=== PATIENT | male | born 1975 | race Caucasian/White ===

== ENCOUNTER 2021-02-02 15:40 | Emergency (ER) | payer OTHER ==
[~2021-02-02] VITALS: Ht 157.5 cm; Wt 86.3 kg
[2021-02-02] MEDS ORDERED: LISINOPRIL 10 MG TABLET PO ONE (16:00)
[2021-02-02] MEDS ORDERED: hydrOXYzine 25 MG TABLET PO PRN (16:00)
--- NOTE | 2021-02-02 16:29 | RAD ---
EXAM: Chest, single view. HISTORY: Hypertension. COMPARISON: None. FINDINGS: A frontal view of the chest is obtained. There is no infiltrate, pleural effusion or pneumo thorax. There is a prominent cardiac silhouette. IMPRESSION: No acute pulmonary finding. Electronically signed by: Daniela Quinones MD (02/02/2021 4:26 PM) [id number]
[2021-02-02 16:33] LABS: BASO # 0.1 x10^3/uL (0.0-0.2); BASO % 1 % (0-3); EOS # 1.3 x10^3/uL (0.0-0.7); EOS % 12 % (0-3); HEMATOCRIT 43.9 % (39.0-53.0); HEMOGLOBIN 14.8 g/dL (13.0-17.5); LYMPH # 2.5 x10^3/uL (1.0-4.8); LYMPH % 22 % (24-48); MEAN CORPUSCULAR HEMOGLOBIN 29 pg (25-35); MEAN CORPUSCULAR HGB CONC 34 g/dL (31-37); MEAN CORPUSCULAR VOLUME 87 fL (79-100); MONO # 0.7 x10^3/uL (0.0-1.1); MONO % 6 % (0-9); NEUT # 6.7 x10^3/uL (1.8-7.7); NEUT % 59 % (31-73); PLATELET COUNT 333 x10^3/uL (140-400); RED BLOOD COUNT 5.05 x10^6/uL (4.30-5.70); RED CELL DISTRIBUTION WIDTH 16.3 % (11.5-14.5); WHITE BLOOD COUNT 11.5 x10^3/uL (4.0-11.0)
--- NOTE | 2021-02-02 16:47 | EKG ---
[facility] [address] [place] [address] Test Date: 2021-02-02 Test Time: 16:42:54 Pat Name: KEM NGUYEN Department: Room: Gender: M Straw Hat Presser: : 1975 Requested By: ANGELICA CURRAN Order Number: [id number] Reading MD: Measurements Intervals [place] Rate: 92 P: 45 OK: 132 QRS: -34 QRSD: 94 T: 19 QT: 354 QTc: 443 Interpretive Statements SINUS RHYTHM ABNORMAL LEFT AXIS DEVIATION R-S TRANSITION ZONE IN V LEADS DISPLACED TO THE LEFT S1,S2,S3 PATTERN LEFT ANTERIOR FASCICULAR BLOCK INCOMPLETE RIGHT BUNDLE BRANCH BLOCK ABNORMAL ECG RI6.02 No previous ECG available for comparison
[2021-02-02 16:53] LABS: % BASOS 2 % (0-3); % EOS 13 % (0-5); % LYMPHS 19 % (24-48); % MONOS 4 % (0-10); % SEGS 62 % (35-66); PLT ESTIMATE ADEQUATE (ADEQUATE)
[2021-02-02 16:55] LABS: POLYCHROMASIA SLIGHT
[2021-02-02 17:18] LABS: CALCIUM 8.8 mg/dL (8.5-10.1); CREATININE 1.1 mg/dL (0.7-1.3); GFR 73.1; POTASSIUM 3.7 mmol/L (3.5-5.1)
[2021-02-02] MEDS ORDERED: LISI10TA16 PO (18:32)
[2021-02-02] MEDS ORDERED: HYDR25TA PO (18:32)
--- NOTE | 2021-02-02 18:32 | PHYS DOC ---
Past Medical History Additional Past Medical Histor: NON-HODKINS LYMPHOMA (ANGELICA CURRAN APRN) Past Surgical History: Other Additional Past Surgical Histo: LYMPHECTOMY (ANGELICA CURRAN APRN) Smoking Status: Never Smoker Alcohol Use: None (ANGELICA CURRAN APRN) General Adult EDM: Chief Complaint: SKIN PROBLEM HPI: HPI: Patient is a 45 year old male presents the emergency department complaining of itching all over. Patient states he would like to have a refill of his hydroxyzine prescription for itching and his lisinopril prescription for hyp ertension. Patient reports that he has a history of lymphoma, has broken out in hives that have not gone gone away in over a year. Patient reports he sees dermatology at the [facility] who told him his hives are related to his lymphoma diagnosis. Patient denies any changes in his hives other than he has ongoing itching and is ran out of his hydroxyzine for itching. Patient denies any chest pains, chest palpitations, shortness of breath, recent fever or chills. Patient states that his skin does itch. Patient denies any other physical complaints or physical concerns. Patient reports he has had the Covid 19 vaccination series, completed in October 2020, sumi panda. (ANGELICA CURRAN APRN) Review of Systems: Review of Systems: 14 body systems of review of systems have been reviewed. See HPI for pertinent positives and negative responses, otherwise all other systems are negative, nonpertinent or noncontributory. Constitutional: Negative except as outlined in HPI above. Skin: Negative except as outlined in HPI above. Eyes: Negative except as outlined in HPI above. HENT: Negative except as outlined in HPI above. Respiratory: Negative except as outlined in HPI above. Cardiovascular: Negative except as outlined in HPI above. GI: Negative except as outlined in HPI above. : Negative except as outlined in HPI above. Musculoskeletal: Negative except as outlined in HPI above. Integument: Negative except as outlined in HPI above. Neurologic: Negative except as outlined in HPI above. Endocrine: Negative except as outlined in HPI above. Lymphatic: Negative except as outlined in HPI above. Psychiatric: Negative except as outlined in HPI above. (ANGELICA CURRAN APRN) Heart Score: C/O Chest Pain: No Risk Factors: Risk Factors: DM, Current or recent (<one month) smoker, HTN, HLP, family history of CAD, obesity. Risk Scores: Score 0 - 3: 2.5% MACE over next 6 weeks - Discharge Home Score 4 - 6: 20.3% MACE over next 6 weeks - Admit for Clinical Observation Score 7 - 10: 72.7% MACE over next 6 weeks - Early Invasive Strategies (ANGELICA CURRAN APRN) Current Medications: Current Medications Medications (Trade) Dose Ordered Sig/Blank Start Time Stop Time Status Last Admin Dose Admin Hydroxyzine HCl (Atarax) 25 mg PRN Q6HRS PRN 02/02/21 16:00 02/02/21 16:09 25 MG Lisinopril (Prinivil) 10 mg 1X ONCE 02/02/21 16:00 02/02/21 16:01 DC 02/02/21 16:10 10 MG (ANGELICA CURRAN APRN) Allergies: Allergies: Allergies Coded Allergies Type Severity Reaction Last Updated Verified No Known Drug Allergies 02/02/21 No (ANGELICA CURRAN APRN) Physical Exam: PE: Constitutional: Well developed, well nourished, no acute distress, non-toxic appearance. 45-year-old male in no apparent distress. HENT: Normocephalic, atraumatic. Patient speaking in normal voice tones, no drooling, no trismus. No lymphadenopathy of the head and neck appreciated. Eyes: Conjunctiva normal, no discharge. Neck: Normal range of motion, no stridor. Cardiovascular: No cyanosis appreciated, distal cap refill less than 2 seconds. Lungs & Thorax: Patient is in no respiratory distress, no audible adventitious lung sounds appreciated. Lung sounds clear to auscultate all lung rock. Abdomen: Nontender, no abnormalities noted. Skin: Warm, dry, no erythema, no rash. Patient has marked global purpuric raised rash from scalp to feet. Skin is intact. Back: No tenderness, no deformities. Extremities: No tenderness, no cyanosis, no clubbing, ROM intact, no edema. Neurologic: Alert and oriented X 3, normal motor function, normal sensory function, no focal deficits noted. Psychologic: Affect normal, judgement normal, mood normal. (ANGELICA CURRAN APRN) Current Patient Data: Labs: Laboratory Tests Test 02/02/21 16:22 02/02/21 16:58 White Blood Count 11.5 x10^3/uL (4.0-11.0) H Red Blood Count 5.05 x10^6/uL (4.30-5.70) Hemoglobin 14.8 g/dL (13.0-17.5) Hematocrit 43.9 % (39.0-53.0) Mean Corpuscular Volume 87 fL (79-100) Mean Corpuscular Hemoglobin 29 pg (25-35) Mean Corpuscular Hemoglobin Concent 34 g/dL (31-37) Red Cell Distribution Width 16.3 % (11.5-14.5) H Platelet Count 333 x10^3/uL (140-400) Neutrophils (%) (Auto) 59 % (31-73) Lymphocytes (%) (Auto) 22 % (24-48) L Monocytes (%) (Auto) 6 % (0-9) Eosinophils (%) (Auto) 12 % (0-3) H Basophils (%) (Auto) 1 % (0-3) Neutrophils # (Auto) 6.7 x10^3/uL (1.8-7.7) Lymphocytes # (Auto) 2.5 x10^3/uL (1.0-4.8) Monocytes # (Auto) 0.7 x10^3/uL (0.0-1.1) Eosinophils # (Auto) 1.3 x10^3/uL (0.0-0.7) H Basophils # (Auto) 0.1 x10^3/uL (0.0-0.2) Segmented Neutrophils % 62 % (35-66) Lymphocytes % 19 % (24-48) L Monocytes % 4 % (0-10) Eosinophils % 13 % (0-5) H Basophils % 2 % (0-3) Platelet Estimate Adequate (ADEQUATE) Polychromasia Slight Sodium Level 140 mmol/L (136-145) Potassium Level 3.7 mmol/L (3.5-5.1) Chloride Level 104 mmol/L (98-107) Carbon Dioxide Level 30 mmol/L (21-32) Anion Gap 6 (6-14) Blood Urea Nitrogen 13 mg/dL (8-26) Creatinine 1.1 mg/dL (0.7-1.3) Estimated GFR (Cockcroft-Gault) 73.1 Glucose Level 133 mg/dL (70-99) H Calcium Level 8.8 mg/dL (8.5-10.1) Troponin I Quantitative < 0.017 ng/mL (0.000-0.055) Laboratory Tests 02/02/21 16:22 Laboratory Tests 02/02/21 16:58 Vital Signs: Vital Signs Date Time Temp Pulse Resp B/P (MAP) Pulse Ox O2 Delivery O2 Flow Rate FiO2 02/02/21 17:00 91 244/115 (158) 99 02/02/21 15:51 98.2 20 98.2 (ANGELICA CURRAN APRN) EKG: EKG: EKG performed at 1642 by ED nursing staff shows a normal sinus rhythm with a left axis deviation, no other ectopy appreciated, heart rate 92 bpm, MO interval 0.132, QT 0.443, no acute STEMI, no ACS, no acute ischemia appreciated, EKG interpreted by ED attending physician Dr. Briones. (ANGELICA CURRAN APRN) Radiology/Procedures: Radiology/Procedures: PATIENT: SHERRILL HECTOROUNT: [id number] : 1975 LOCATION: ER AGE: 45 SEX: M EXAM STATUS: REG ER ORD. PHYSICIAN: ANGELICA CURRAN APRN REASON: high blood pressure PROCEDURE: CHEST AP ONLY EXAM: Chest, single view. HISTORY: Hypertension. COMPARISON: None. FINDINGS: A frontal view of the chest is obtained. There is no infiltrate, pleural effusion or pneumothorax. There is a prominent cardiac silhouette. IMPRESSION: No acute pulmonary finding. Electronically signed by: Daniela Doshi MD (02/02/2021 4:26 PM) [id number] DICTATED and SIGNED BY: DANIELA DOSHI MD DATE: 02/02/21 [id number] (ANGELICA CURRAN APRN) Course & Med Decision Making: Course & Med Decision Making Pertinent Labs and Imaging studies reviewed. (See chart for details) 45-year-old male, vital signs reviewed, presents to the emergency department for prescription refill of hydroxyzine and lisinopril. Patient's physical presentation and examination unremarkable for acute illness. Patient does have a global purpuric rash which she describes as normal over the past year related to his lymphoma and cancer treatment for lymphoma. Patient's blood pressure elevated at 248/123 during physical examination, patient has no physical symptoms of elevated blood pressure, related to patient's history of lymphoma will rule out endorgan damage, give patient's 10 mg lisinopril dose in the ED today along with hydroxyzine for itching dose suspected elevated blood pressure related to patient's pruritic urticaria. Patient is EKG unremarkable, chest x-ray unremarkable, labs did not reveal any endorgan damage, upon reevaluation of the patient, patient's blood pressure down to 158/100. Discussed with patient need to keep follow-up appointment with physicians at , continue to take blood pressure medications as directed, follow-up with dermatology for ongoing treatment of skin condition. Discussed with the patient all findings and diagnostic testing as well as the need to follow-up with their primary care provider for further evaluation and treatment or return to the ED if any new or worsening symptoms. Strict return precautions were also discussed at length, the patient voiced understanding and agreement with the discharge planning. The patient was nontoxic in appearance, in no apparent distress, and hemodynamically stable at the time of disposition. (ANGELICA CURRAN APRN) Course & Med Decision Making I have participated in the care of this patient and I have reviewed and examined the patient and agree with all pertinent clinical information above including history, exam, and recommendations. Patient with chronic appearing keloid-like purpuric rash which she states has been present for 1 year and unchanged. He has does have a history of lymphoma, untreated hypertension, denies illicit drug use, admits that he is not great about taking his medications. Does not have his medications at home. He was given treatment with lisinopril in the emergency department which lowered his blood pressure as above. Further antihypertensives were withheld. Patient was asymptomatic during his entire ED course it did not show any evidence for endorgan damage. He was urged to come back to the emergency department if he suffers any symptoms such as chest pain, shortness of breath, for this night as he cannot manage at home. He was given his blood pressure medicine for home. vitals after treatment as below. Lamar Briones, DO Vital Signs Date Time Temp Pulse Resp B/P (MAP) Pulse Ox O2 Delivery O2 Flow Rate FiO2 02/02/21 18:44 97 186/95 (125) 98 02/02/21 17:00 91 244/115 (158) 99 02/02/21 16:10 98 246/129 (168) 99 02/02/21 16:10 93 246/129 02/02/21 15:51 98.2 96 20 223/115 96 98.2 (LAMAR BRIONES DO) [place] Disclaimer: Dragon Disclaimer: This electronic medical record was generated, in whole or in part, using a voice recognition dictation system. (ANGELICA CURRAN APRN) Departure Departure Impression: Primary Impression: Skin rash Additional Impressions: Medication refill Poorly-controlled hypertension Disposition: HOME / SELF CARE / HOMELESS Condition: GOOD Referrals: NO PCP (PCP) Additional Instructions: You are seen today in the emergency department for a medication refill for your skin rash itching, and medication refill for your high blood pressure. Your blood pressure was markedly high, however after giving your normal dose of itching medication and blood pressure medication it has reduced satisfactorily. I am prescribing you your blood pressure medication at itching medication as you requested, today in the emergency department a cardiorespiratory work-up along with serum labs to rule out endorgan damage related to ongoing high blood pressu re was performed, there was no sign of endorgan damage as we discussed. Please keep all your follow-up appointments at [facility] [place]. Thank you for visiting our Emergency Department. It was a pleasure taking care of you today in the emergency department and we appreciate you trusting us with your care. If any additional problems come up don't hesitate to return to visit us. Please follow up with your primary care provider so they can plan additional care if needed and know about the problem that you had. If symptoms worsen come back to the Emergency Department. Any concerning symptoms that start such as chest pain, shortness of air, weakness or numbness on one side of the body, running high fevers or any other concerning symptoms return to the ER. EMERGENCY DEPARTMENT GENERAL DISCHARGE INSTRUCTIONS Thank you for coming to [facility] Emergency Department (ED) today and trusting us with you care. We trust that you had a positive experience in our Emergency Department. If you wish to speak to the department management, you may call the Director at [phone]. YOUR FOLLOW UP INSTRUCTIONS ARE FOLLOWS: 1. Do you have a private Doctor? If you do not have a private doctor, please ask for a resource list of physicians or clinics that may be able to assist you with follow up care. 2. The Emergency Physicain has interpreted your x-rays. The X-Ray specialist will also review them. If there is a change in the findings, you will be notified in 48 hours when at all possible. 3. A lab test or culture has been done, your results will be reviewed and you will be notified if you need a change in treatment. ADDITIONAL INSTRUCTIONS AND INFORMATION: 1. Your care today has been supervised by a physician who is specially trained in emergency care. Many problems require more than one evaluation for a complete diagnosis and treatment. We recommend that you schedule your follow up appointment as recommended to ensure complete treatment of you illness or injury. If you are unable to obtain follow up care and continue to have a problem, or if your condition worsens, we recommend that you return to the ED. 2. We are not able to safely determine your condition over the phone nor are we able to give sound medical advice over the phone. For these safety reasons, if you call for medical advice we will ask you to come to the ED for further evaluation. 3. If you have any questions regarding these discharge instructions please call the ED at [phone]. SAFETY INFORMATION: In the interest of safety, wellness, and injury prevention; we encourage you to wear your sealbelt, if you smoke; quite smoking, and we encourage family to use a protective helmet for bicycling and other sporting events that present an increased risk for head injury. IF YOUR SYMPTOMS WORSEN OR NEW SYMPTOMS DEVELOP, OR YOU HAVE CONCERNS ABOUT YOUR CONDITION; OR IF YOUR CONDITION WORSENS WHILE YOU ARE WAITING FOR YOUR FOLLOW UP APPOINTMEN T; EITHER CONTACT YOUR PRIMARY CARE DOCTOR, THE PHYSICIAN WHOSE NAME AND NUMBER YOU WERE GIVEN, OR RETURN TO THE ED IMMEDIATELY. Scripts Hydroxyzine Hcl (HYDROXYZINE HCL) 25 Mg Tablet 1 TAB PO TID for itching, #90 TAB 0 Refills Prov: ANGELICA CURRAN BLENDER LABORER 02/02/21 Lisinopril (LISINOPRIL) 10 Mg Tablet 1 TAB PO DAILY for hypertension, #30 TAB 0 Refills Prov: ANGELICA CURRAN BLENDER LABORER 02/02/21 ANGELICA CURRAN APRN Feb 02, 2021 18:32 LAMAR BRIONES DO Feb 03, 2021 06:29
[2021-02-02 18:44] VITALS: BP 186/95
== END 2021-02-02 18:44 | disposition home or self-care (01) ==
LOC: ER 15:40
DX: R21 Rash and other nonspecific skin eruption (principal); I10 Essential (primary) hypertension
CPT/HCPCS: 36415; 71045; 80048; 84484; 85007; 85025; 93005; 99285-25

== ENCOUNTER 2021-05-19 07:51 | Outpatient (CLI) | payer OTHER ==
[2021-05-19] VITALS (8 sets, daily range): BP systolic 168–211; BP diastolic 85–121
[~2021-05-19] VITALS: Ht 160 cm; Wt 84.0 kg
[~2021-05-19 07:51] MED LIST changes: -AMLO-187 PO; -LISI-130 PO
[2021-05-19 08:47] LABS: BASO # 0.1 x10^3/uL (0.0-0.2); BASO % 1 % (0-3); EOS # 0.6 x10^3/uL (0.0-0.7); EOS % 6 % (0-3); HEMATOCRIT 42.6 % (39.0-53.0); HEMOGLOBIN 14.5 g/dL (13.0-17.5); LYMPH # 2.2 x10^3/uL (1.0-4.8); LYMPH % 23 % (24-48); MEAN CORPUSCULAR HEMOGLOBIN 29 pg (25-35); MEAN CORPUSCULAR HGB CONC 34 g/dL (31-37); MEAN CORPUSCULAR VOLUME 85 fL (79-100); MONO # 0.7 x10^3/uL (0.0-1.1); MONO % 8 % (0-9); NEUT # 5.9 x10^3/uL (1.8-7.7); NEUT % 62 % (31-73); PLATELET COUNT 326 x10^3/uL (140-400); RED BLOOD COUNT 4.99 x10^6/uL (4.30-5.70); RED CELL DISTRIBUTION WIDTH 15.1 % (11.5-14.5); WHITE BLOOD COUNT 9.5 x10^3/uL (4.0-11.0)
[2021-05-19 08:54] LABS: CALCIUM 8.8 mg/dL (8.5-10.1); CREATININE 1.1 mg/dL (0.7-1.3); GFR 73.1; POTASSIUM 3.8 mmol/L (3.5-5.1)
[2021-05-19 08:56] LABS: PROTHROMBIN TIME PATIENT 11.4 SEC (11.7-14.0)
[2021-05-19] MEDS ORDERED: AMLO-187 PO (09:27)
[2021-05-19] MEDS ORDERED: LISI-130 PO (09:27)
[2021-05-19] MEDS ORDERED: LIDOCAINE 1%/EPI 1:100,000 20 ML VIAL. ONE (09:38)
[2021-05-19] MEDS ORDERED: LISINOPRIL 20 MG TABLET PO SCH (09:45)
[2021-05-19] MEDS ORDERED: hydrOXYzine 25 MG TABLET PO PRN (09:45)
[2021-05-19] MEDS ORDERED: MIDAZOLAM HCL/PF 5 MG/5 ML VIAL. ONE (10:04)
[2021-05-19] MEDS ORDERED: fentaNYL PF VIAL 100 MCG/2 ML VIAL ONE (10:04)
[2021-05-19] MEDS ORDERED: LIDOCAINE 1%/EPI 1:100,000 20 ML VIAL. INJ ONE (10:30)
[2021-05-19] MEDS ORDERED: MIDAZOLAM HCL/PF 5 MG/5 ML VIAL. IV ONE (10:30)
[2021-05-19] MEDS ORDERED: fentaNYL PF VIAL 100 MCG/2 ML VIAL IV ONE (10:30)
--- NOTE | 2021-05-19 12:14 | RAD ---
PROCEDURE: Fluoroscopically and ultrasound-guided placement of right internal jugular tunnel central venous catheter with port (Bard PowerPort, Groshong tip ). Clinical Indication: Cutaneous T-cell lymphoma Discussion: The risks and benefits of the procedure were discussed with the patient and/or their scheduling representative. Informed consent was obtained. The patient was brought to the fluoroscopy suite and placed in supine position. A time out procedure was performed. The right neck and chest were prepped and draped using maximum sterile barrier technique including th e use of: Current guideline approved cutaneous antisepsis, a large sterile sheet to establish a steri le field. Additionally the numerical control drill press operator wore a hat, mask, sterile gloves, a sterile gown during the proce dure as well as practiced acceptable hand hygiene prior to placing the port. Ultrasound-guided access: Ultrasound evaluation showed the right jugular vein to be patent and compr essible. 1 % lidocaine with epinephrine was administered to the skin and subcutaneous tissues overlyi ng the right neck and chest. Under direct ultrasound guidance a single wall puncture was made followe d by tract dilation and placement of a sheath. An ultrasound image was saved and sent to PACS. Next, an incision was made in an infraclavicular location and a pocket created. The catheter was tunneled between the pocket and the venotomy site. The catheter was advanced through the peel away sheath, u nder fluoroscopic guidance, such that it's tip was in the mid right atrium. The catheter was connecte d to the port reservoir. The port was accessed and found to flush and aspirate normally. The reservoi r was then placed into the subcutaneous pocket. The wound was closed in layers using 3 Vicryl and 4- 0 Vicryl suture. Dermabond was applied overlying the wound, and venotomy site. The patient tolerated procedure without immediate complication. Sedation: Conscious sedation was performed for 45 minutes. Sedation was carried while the patient w as continually monitored by a member of the Radiology nursing staff. Continual cardiopulmonary monit oring was carried out during the procedure. The patient tolerated the procedure well and there were no immediate complications. Fluoroscopy time: 0.3 mins Dose area product 1 Alexandra centimeter squared Impression: Successful ultrasound and fluoroscopically guided placement of right internal jugular estephanie rain central venous catheter with port (Bard PowerPort, Groshong tip). Electronically signed by: Jose Myers MD (05/19/2021 12:12 PM) [id number]
--- NOTE | 2021-05-19 12:49 | NUR ---
Discharge Note: JARON HECTOR Discharge instructions and discharge home medications reviewed with Patient and a copy given. All questions have been answered and understanding verbalized. The following instructions and handouts were given: Port placement and moderate sedation. Discontinued lines and drains: right upper arm IV dc'd, tip intact, and bandage applied. Patient discharged to [facility] via wheelchair.
== END 2021-05-19 12:55 | disposition home or self-care (01) ==
LOC: INTRAD 07:51
PROVIDERS: ATTEND Internal Medicine Hematology & Oncology
DX: Z45.2 Encounter for adjustment and management of vascular access device (principal); C84.A1 Cutaneous T-cell lymphoma, unspecified lymph nodes of head, face, and neck; I10 Essential (primary) hypertension; Z87.891 Personal history of nicotine dependence; Z79.899 Other long term (current) drug therapy; Z98.890 Other specified postprocedural states; Z20.822 Contact with and (suspected) exposure to COVID-19
CPT/HCPCS: 36415; 36561; 76937; 77001; 80048; 85025; 85610; 87426; 99152; 99153; C1788; C1892; J0690; J2250; J3010; J3490

== ENCOUNTER → 2021-05-19 | Outpatient (CLI) | payer OTHER ==
[2021-02-02 18:44] VITALS: BP_DIAS 95
[~2021-05-19] MED LIST: AMLO-187 PO; HYDR25TA PO; LISI-130 PO; LISI10TA16 PO
[2021-05-19 12:30] VITALS: BP_SYST 182
[2021-05-19 14:19] LABS: BASO # 0.1 x10^3/uL (0.0-0.2); BASO % 1 % (0-3); EOS # 0.5 x10^3/uL (0.0-0.7); EOS % 5 % (0-3); HEMATOCRIT 41.6 % (39.0-53.0); LYMPH # 1.9 x10^3/uL (1.0-4.8); LYMPH % 20 % (24-48); MEAN CORPUSCULAR HEMOGLOBIN 29 pg (25-35); MEAN CORPUSCULAR HGB CONC 34 g/dL (31-37); MEAN CORPUSCULAR VOLUME 86 fL (79-100); MONO # 0.6 x10^3/uL (0.0-1.1); MONO % 6 % (0-9); NEUT # 6.3 x10^3/uL (1.8-7.7); NEUT % 67 % (31-73); PLATELET COUNT 307 x10^3/uL (140-400); RED BLOOD COUNT 4.82 x10^6/uL (4.30-5.70); RED CELL DISTRIBUTION WIDTH 15.4 % (11.5-14.5); WHITE BLOOD COUNT 9.4 x10^3/uL (4.0-11.0)
[2021-05-19 14:34] LABS: CALCIUM 8.5 mg/dL (8.5-10.1); CREATININE 1.4 mg/dL (0.7-1.3); GFR 55.3; POTASSIUM 3.3 mmol/L (3.5-5.1)
[2021-05-19 14:40] LABS: ALBUMIN 3.2 g/dL (3.4-5.0); ALBUMIN/GLOBULIN RATIO 0.8 (1.0-1.7); TOTAL BILIRUBIN 0.2 mg/dL (0.2-1.0); TOTAL PROTEIN 7.3 g/dL (6.4-8.2)
== END ==
LOC: ONCLAB 14:04
PROVIDERS: ATTEND Internal Medicine Hematology & Oncology
DX: C84.08 Mycosis fungoides, lymph nodes of multiple sites (principal)
CPT/HCPCS: 36415; 80053; 83615; 85025

== ENCOUNTER → 2021-06-08 | Outpatient (CLI) | payer OTHER ==
[2021-05-19 12:30] VITALS: BP 182/95
[~2021-06-08] MED LIST changes: +AMLO-187 PO; +LISI-130 PO
[2021-06-08 08:45] LABS: BASO % 0 % (0-3); EOS # 0.3 x10^3/uL (0.0-0.7); EOS % 4 % (0-3); HEMATOCRIT 41.1 % (39.0-53.0); HEMOGLOBIN 13.6 g/dL (13.0-17.5); LYMPH % 33 % (24-48); MEAN CORPUSCULAR HEMOGLOBIN 28 pg (25-35); MEAN CORPUSCULAR HGB CONC 33 g/dL (31-37); MEAN CORPUSCULAR VOLUME 85 fL (79-100); MONO # 0.6 x10^3/uL (0.0-1.1); MONO % 6 % (0-9); NEUT # 5.3 x10^3/uL (1.8-7.7); NEUT % 57 % (31-73); PLATELET COUNT 338 x10^3/uL (140-400); RED BLOOD COUNT 4.83 x10^6/uL (4.30-5.70); RED CELL DISTRIBUTION WIDTH 15.3 % (11.5-14.5); WHITE BLOOD COUNT 9.3 x10^3/uL (4.0-11.0)
[2021-06-08 08:57] LABS: CALCIUM 8.9 mg/dL (8.5-10.1); CREATININE 1.2 mg/dL (0.7-1.3); GFR 66.1; POTASSIUM 3.8 mmol/L (3.5-5.1)
[2021-06-08 09:03] LABS: ALBUMIN 3.4 g/dL (3.4-5.0); ALBUMIN/GLOBULIN RATIO 0.8 (1.0-1.7); TOTAL BILIRUBIN 0.2 mg/dL (0.2-1.0); TOTAL PROTEIN 7.6 g/dL (6.4-8.2)
== END ==
LOC: ONCLAB 08:23
PROVIDERS: ATTEND Physician Assistant
DX: C84.08 Mycosis fungoides, lymph nodes of multiple sites (principal)
CPT/HCPCS: 36415; 80053; 85025

== ENCOUNTER → 2021-06-11 | Outpatient (CLI) | payer OTHER ==
[2021-05-19 12:30] VITALS: BP 182/95
--- NOTE | 2021-06-11 09:42 | RAD ---
Renal Duplex Ultrasound. 06.11.21 Indication: Hypertension Comparison: None Discussion: Ultrasound evaluation of the kidneys static images are submitted to PACS. Duplex ultrasou nd imaging of the renal vasculature was performed bilaterally. The right kidney measures 10.6 cm in length. Left kidney measures 10.8 cm in length. No morphologic a bnormalities involving the kidneys are identified. Peak systolic velocity, right renal artery: 119 cm/s Peak systolic velocity left main renal artery: 82 cm/s Peak systolic velocity of the abdominal aorta at the level of the renal arteries 1 30 cm/s Right renal aortic ratio. 0.9 Left renal ratio 0.63 Visualized renal veins are grossly patent. IMPRESSION: No sonographic evidence of hematemesis significant renal arterial stenosis Electronically signed by: Jose Myers MD (06/11/2021 9:39 AM) [id number]
== END ==
LOC: US 09:58
PROVIDERS: ATTEND Family Medicine
DX: I10 Essential (primary) hypertension (principal)
CPT/HCPCS: 93975

== ENCOUNTER → 2021-06-29 | Outpatient (CLI) | payer OTHER ==
[2021-05-19 12:30] VITALS: BP 182/95
[2021-06-29 10:44] LABS: BASO # 0.1 x10^3/uL (0.0-0.2); BASO % 1 % (0-3); EOS # 0.3 x10^3/uL (0.0-0.7); EOS % 3 % (0-3); HEMATOCRIT 41.1 % (39.0-53.0); HEMOGLOBIN 13.3 g/dL (13.0-17.5); LYMPH # 2.9 x10^3/uL (1.0-4.8); LYMPH % 28 % (24-48); MEAN CORPUSCULAR HEMOGLOBIN 27 pg (25-35); MEAN CORPUSCULAR HGB CONC 32 g/dL (31-37); MEAN CORPUSCULAR VOLUME 84 fL (79-100); MONO # 0.7 x10^3/uL (0.0-1.1); MONO % 6 % (0-9); NEUT # 6.4 x10^3/uL (1.8-7.7); NEUT % 61 % (31-73); PLATELET COUNT 322 x10^3/uL (140-400); RED BLOOD COUNT 4.89 x10^6/uL (4.30-5.70); RED CELL DISTRIBUTION WIDTH 15.4 % (11.5-14.5); WHITE BLOOD COUNT 10.4 x10^3/uL (4.0-11.0)
[2021-06-29 10:56] LABS: ALBUMIN 3.4 g/dL (3.4-5.0); ALBUMIN/GLOBULIN RATIO 0.7 (1.0-1.7); CALCIUM 8.8 mg/dL (8.5-10.1); CREATININE 1.2 mg/dL (0.7-1.3); GFR 66.1; POTASSIUM 3.6 mmol/L (3.5-5.1); TOTAL BILIRUBIN 0.3 mg/dL (0.2-1.0); TOTAL PROTEIN 8.3 g/dL (6.4-8.2)
[2021-07-07 10:12] LABS: ALDOSTERONE 6.1 ng/dL (0.0-30.0)
== END ==
LOC: ONCLAB 09:00
PROVIDERS: ATTEND Internal Medicine Hematology & Oncology
DX: C84.08 Mycosis fungoides, lymph nodes of multiple sites (principal)
CPT/HCPCS: 36415; 80053; 82088; 83615; 84244; 85025

== ENCOUNTER → 2021-07-29 | Outpatient (CLI) | payer OTHER ==
[2021-05-19 12:30] VITALS: BP 182/95
[2021-07-29 08:55] LABS: CALCIUM 7.6 mg/dL (8.5-10.1); CREATININE 1.3 mg/dL (0.7-1.3); GFR 60.2; POTASSIUM 3.7 mmol/L (3.5-5.1)
[2021-07-29 09:01] LABS: ALBUMIN 3.2 g/dL (3.4-5.0); ALBUMIN/GLOBULIN RATIO 0.6 (1.0-1.7); TOTAL BILIRUBIN 0.2 mg/dL (0.2-1.0); TOTAL PROTEIN 8.3 g/dL (6.4-8.2)
[2021-07-29 09:10] LABS: BASO # 0.1 x10^3/uL (0.0-0.2); BASO % 1 % (0-3); EOS # 0.3 x10^3/uL (0.0-0.7); EOS % 2 % (0-3); HEMATOCRIT 43.1 % (39.0-53.0); LYMPH # 2.5 x10^3/uL (1.0-4.8); LYMPH % 24 % (24-48); MEAN CORPUSCULAR HEMOGLOBIN 28 pg (25-35); MEAN CORPUSCULAR HGB CONC 33 g/dL (31-37); MEAN CORPUSCULAR VOLUME 87 fL (79-100); MONO # 0.6 x10^3/uL (0.0-1.1); MONO % 6 % (0-9); NEUT % 67 % (31-73); PLATELET COUNT 334 x10^3/uL (140-400); RED BLOOD COUNT 4.95 x10^6/uL (4.30-5.70); RED CELL DISTRIBUTION WIDTH 15.8 % (11.5-14.5); WHITE BLOOD COUNT 10.5 x10^3/uL (4.0-11.0)
== END ==
LOC: ONCLAB 08:00
PROVIDERS: ATTEND Internal Medicine Hematology & Oncology
DX: C84.08 Mycosis fungoides, lymph nodes of multiple sites (principal)
CPT/HCPCS: 36415; 80053; 85025

== ENCOUNTER → 2021-08-25 | Outpatient (CLI) | payer OTHER ==
[2021-05-19 12:30] VITALS: BP 182/95
[2021-08-25 08:46] LABS: BASO # 0.1 x10^3/uL (0.0-0.2); BASO % 2 % (0-3); EOS # 0.3 x10^3/uL (0.0-0.7); EOS % 3 % (0-3); HEMATOCRIT 39.3 % (39.0-53.0); HEMOGLOBIN 12.8 g/dL (13.0-17.5); LYMPH # 2.4 x10^3/uL (1.0-4.8); LYMPH % 28 % (24-48); MEAN CORPUSCULAR HEMOGLOBIN 28 pg (25-35); MEAN CORPUSCULAR HGB CONC 33 g/dL (31-37); MEAN CORPUSCULAR VOLUME 86 fL (79-100); MONO # 0.5 x10^3/uL (0.0-1.1); MONO % 6 % (0-9); NEUT # 5.3 x10^3/uL (1.8-7.7); NEUT % 61 % (31-73); PLATELET COUNT 314 x10^3/uL (140-400); RED BLOOD COUNT 4.56 x10^6/uL (4.30-5.70); RED CELL DISTRIBUTION WIDTH 15.9 % (11.5-14.5); WHITE BLOOD COUNT 8.6 x10^3/uL (4.0-11.0)
[2021-08-25 08:50] LABS: CALCIUM 8.5 mg/dL (8.5-10.1); CREATININE 1.3 mg/dL (0.7-1.3); GFR 60.2; POTASSIUM 3.3 mmol/L (3.5-5.1)
[2021-08-25 08:57] LABS: ALBUMIN 3.4 g/dL (3.4-5.0); ALBUMIN/GLOBULIN RATIO 0.8 (1.0-1.7); TOTAL BILIRUBIN 0.2 mg/dL (0.2-1.0); TOTAL PROTEIN 7.8 g/dL (6.4-8.2)
== END ==
LOC: ONCLAB 08:06
PROVIDERS: ATTEND Internal Medicine Hematology & Oncology
DX: C84.08 Mycosis fungoides, lymph nodes of multiple sites (principal)
CPT/HCPCS: 36415; 80053; 83615; 85025

== ENCOUNTER → 2021-09-22 | Outpatient (CLI) | payer OTHER ==
[2021-05-19 12:30] VITALS: BP 182/95
[2021-09-22 08:21] LABS: BASO # 0.1 x10^3/uL (0.0-0.2); BASO % 1 % (0-3); EOS # 0.2 x10^3/uL (0.0-0.7); EOS % 2 % (0-3); HEMATOCRIT 40.4 % (39.0-53.0); LYMPH # 2.7 x10^3/uL (1.0-4.8); LYMPH % 27 % (24-48); MEAN CORPUSCULAR HEMOGLOBIN 28 pg (25-35); MEAN CORPUSCULAR HGB CONC 32 g/dL (31-37); MEAN CORPUSCULAR VOLUME 86 fL (79-100); MONO # 0.7 x10^3/uL (0.0-1.1); MONO % 7 % (0-9); NEUT # 6.3 x10^3/uL (1.8-7.7); NEUT % 63 % (31-73); PLATELET COUNT 312 x10^3/uL (140-400); RED BLOOD COUNT 4.71 x10^6/uL (4.30-5.70); RED CELL DISTRIBUTION WIDTH 15.9 % (11.5-14.5); WHITE BLOOD COUNT 10.1 x10^3/uL (4.0-11.0)
[2021-09-22 08:31] LABS: CALCIUM 8.5 mg/dL (8.5-10.1); CREATININE 1.6 mg/dL (0.7-1.3); GFR 47.4
[2021-09-22 08:37] LABS: ALBUMIN 3.3 g/dL (3.4-5.0); ALBUMIN/GLOBULIN RATIO 0.7 (1.0-1.7); TOTAL BILIRUBIN 0.3 mg/dL (0.2-1.0); TOTAL PROTEIN 7.8 g/dL (6.4-8.2)
== END ==
LOC: ONCLAB 08:03
PROVIDERS: ATTEND Internal Medicine Hematology & Oncology
DX: C84.08 Mycosis fungoides, lymph nodes of multiple sites (principal)
CPT/HCPCS: 36415; 80053; 85025

== ENCOUNTER → 2021-09-24 | Outpatient (CLI) | payer OTHER ==
[2021-05-19 12:30] VITALS: BP 182/95
== END ==
LOC: ONCLAB 09:53
PROVIDERS: ATTEND Physician Assistant
DX: C84.08 Mycosis fungoides, lymph nodes of multiple sites (principal); R19.7 Diarrhea, unspecified
CPT/HCPCS: 36415; 87493; 87505

== ENCOUNTER → 2021-10-13 | Outpatient (CLI) | payer OTHER ==
[2021-05-19 12:30] VITALS: BP 182/95
[2021-10-13 08:38] LABS: BASO # 0.1 x10^3/uL (0.0-0.2); BASO % 1 % (0-3); EOS # 0.2 x10^3/uL (0.0-0.7); EOS % 2 % (0-3); HEMATOCRIT 39.4 % (39.0-53.0); HEMOGLOBIN 13.1 g/dL (13.0-17.5); LYMPH # 2.6 x10^3/uL (1.0-4.8); LYMPH % 31 % (24-48); MEAN CORPUSCULAR HEMOGLOBIN 29 pg (25-35); MEAN CORPUSCULAR HGB CONC 33 g/dL (31-37); MEAN CORPUSCULAR VOLUME 86 fL (79-100); MONO # 0.5 x10^3/uL (0.0-1.1); MONO % 6 % (0-9); NEUT # 4.8 x10^3/uL (1.8-7.7); NEUT % 59 % (31-73); PLATELET COUNT 309 x10^3/uL (140-400); RED BLOOD COUNT 4.61 x10^6/uL (4.30-5.70); RED CELL DISTRIBUTION WIDTH 15.8 % (11.5-14.5); WHITE BLOOD COUNT 8.2 x10^3/uL (4.0-11.0)
[2021-10-13 08:50] LABS: CALCIUM 9.2 mg/dL (8.5-10.1); CREATININE 1.2 mg/dL (0.7-1.3); GFR 66.1; POTASSIUM 3.5 mmol/L (3.5-5.1)
[2021-10-13 08:56] LABS: ALBUMIN 3.5 g/dL (3.4-5.0); ALBUMIN/GLOBULIN RATIO 0.7 (1.0-1.7); TOTAL BILIRUBIN 0.3 mg/dL (0.2-1.0); TOTAL PROTEIN 8.3 g/dL (6.4-8.2)
== END ==
LOC: ONCLAB 08:05
PROVIDERS: ATTEND Internal Medicine Hematology & Oncology
DX: C84.08 Mycosis fungoides, lymph nodes of multiple sites (principal)
CPT/HCPCS: 36415; 80053; 83615; 85025

== ENCOUNTER → 2021-11-03 | Outpatient (CLI) | payer OTHER ==
[2021-05-19 12:30] VITALS: BP 182/95
[2021-11-03 08:57] LABS: BASO # 0.1 x10^3/uL (0.0-0.2); BASO % 1 % (0-3); EOS # 0.1 x10^3/uL (0.0-0.7); EOS % 1 % (0-3); HEMATOCRIT 37.3 % (39.0-53.0); HEMOGLOBIN 12.8 g/dL (13.0-17.5); LYMPH # 2.3 x10^3/uL (1.0-4.8); LYMPH % 25 % (24-48); MEAN CORPUSCULAR HEMOGLOBIN 29 pg (25-35); MEAN CORPUSCULAR HGB CONC 34 g/dL (31-37); MEAN CORPUSCULAR VOLUME 85 fL (79-100); MONO # 0.6 x10^3/uL (0.0-1.1); MONO % 6 % (0-9); NEUT # 6.2 x10^3/uL (1.8-7.7); NEUT % 67 % (31-73); PLATELET COUNT 305 x10^3/uL (140-400); RED CELL DISTRIBUTION WIDTH 15.7 % (11.5-14.5); WHITE BLOOD COUNT 9.3 x10^3/uL (4.0-11.0)
[2021-11-03 09:15] LABS: CREATININE 1.3 mg/dL (0.7-1.3); GFR 60.2; POTASSIUM 3.4 mmol/L (3.5-5.1)
[2021-11-03 09:21] LABS: ALBUMIN 3.1 g/dL (3.4-5.0); ALBUMIN/GLOBULIN RATIO 0.7 (1.0-1.7); TOTAL BILIRUBIN 0.2 mg/dL (0.2-1.0); TOTAL PROTEIN 7.8 g/dL (6.4-8.2)
== END ==
LOC: ONCLAB 08:14
PROVIDERS: ATTEND Internal Medicine Hematology & Oncology
DX: C84.08 Mycosis fungoides, lymph nodes of multiple sites (principal)
CPT/HCPCS: 36415; 80053; 85025

== ENCOUNTER → 2021-11-24 | Outpatient (CLI) | payer OTHER ==
[2021-05-19 12:30] VITALS: BP 182/95
[2021-11-24 08:59] LABS: BASO # 0.1 x10^3/uL (0.0-0.2); BASO % 1 % (0-3); EOS # 0.1 x10^3/uL (0.0-0.7); EOS % 1 % (0-3); HEMATOCRIT 39.2 % (39.0-53.0); HEMOGLOBIN 13.2 g/dL (13.0-17.5); LYMPH # 1.8 x10^3/uL (1.0-4.8); LYMPH % 19 % (24-48); MEAN CORPUSCULAR HEMOGLOBIN 29 pg (25-35); MEAN CORPUSCULAR HGB CONC 34 g/dL (31-37); MEAN CORPUSCULAR VOLUME 85 fL (79-100); MONO # 0.4 x10^3/uL (0.0-1.1); MONO % 5 % (0-9); NEUT # 7.2 x10^3/uL (1.8-7.7); NEUT % 75 % (31-73); PLATELET COUNT 298 x10^3/uL (140-400); RED BLOOD COUNT 4.61 x10^6/uL (4.30-5.70); RED CELL DISTRIBUTION WIDTH 15.4 % (11.5-14.5); WHITE BLOOD COUNT 9.6 x10^3/uL (4.0-11.0)
[2021-11-24 09:19] LABS: CALCIUM 9.4 mg/dL (8.5-10.1); CREATININE 1.4 mg/dL (0.7-1.3); GFR 55.3; POTASSIUM 3.7 mmol/L (3.5-5.1)
[2021-11-24 09:24] LABS: ALBUMIN 3.3 g/dL (3.4-5.0); ALBUMIN/GLOBULIN RATIO 0.7 (1.0-1.7); TOTAL BILIRUBIN 0.2 mg/dL (0.2-1.0); TOTAL PROTEIN 8.2 g/dL (6.4-8.2)
== END ==
LOC: ONCLAB 08:39
PROVIDERS: ATTEND Internal Medicine Hematology & Oncology
DX: C84.08 Mycosis fungoides, lymph nodes of multiple sites (principal)
CPT/HCPCS: 36415; 80053; 85025